=== PATIENT | female | born 1960 ===

== ENCOUNTER 2018-04-27 21:30 | Emergency (ER) | payer SELFPAY ==
[2018-04-27 21:48] VITALS: TEMP 97.9
[2018-04-27] MEDS ORDERED: Sodium Chloride 0.9% 1,000 ML IV ONE (21:58)
[2018-04-27] MEDS ORDERED: Hydrocortisone 2.5% Rectal Cream(30 gm) PR STA (21:59)
[2018-04-27] MEDS ORDERED: Sodium Chloride 0.9% 1,000 ML ONE (22:28)
[2018-04-27 22:37] LABS: BASO # 0.1 K/uL (0.0-0.2); BASO % 0.9 % (0.0-2.0); EOS % 0.6 % (0.0-4.0); HEMOGLOBIN 13.7 g/dL (11.0-16.0); LYMPH # 2.2 K/uL (1.0-4.3); LYMPH % 28.7 % (20.0-40.0); MEAN CELL VOLUME 86.6 fL (81.0-99.0); MEAN CORPUSCULAR HEMOGLOBIN 30.4 pg (27.0-31.0); MEAN CORPUSCULAR HGB CONC 35.1 g/dL (33.0-37.0); MONO # 0.7 K/uL (0.0-0.8); MONO % 9.3 % (0.0-10.0); NEUT # 4.6 K/uL (1.8-7.0); NEUT % 60.5 % (50.0-75.0); NRBC % 0.1 % (0.0-2.0); RBC 4.49 Mil/uL (3.80-5.20); RED CELL DISTRIBUTION WIDTH 13.1 % (11.5-14.5); WHITE BLOOD COUNT 7.6 K/uL (4.8-10.8)
--- NOTE | 2018-04-27 22:42 | C.PDOC ---
History Of Present Illness 58 y/o female presents to the ED complaining of epigastric burning, bloating, and increased gas since yesterday around 5:00pm. Reports her last meal was fried chicken. Patient tried taking Pepto-Bismol at home without any relief. She denies any associated vomiting, diarrhea, dysuria, hematuria, dizziness, SOB, or chest pain. Admits to history of (+) H pylori several years ago, patient currently does not take any PPI or H2 blockers. She additionally complains of a mild frontal headache. Time Seen by Provider: 04/27/18 21:35 Chief Complaint (Nursing): Abdominal Pain History Per: Patient History/Exam Limitations: no limitations Onset/Duration Of Symptoms: Days (x1) Current Symptoms Are (Timing): Still Present Context: Food Location Of Pain/Discomfort: Epigastric Quality Of Discomfort: Burning, Gas Associated Symptoms: Nausea Past Medical History Reviewed: Historical Data, Nursing Documentation, Vital Signs Vital Signs: Last Vital Signs Temp 97.9 F 04/27/18 21:39 Pulse 64 04/27/18 21:39 Resp 18 04/27/18 21:39 BP 130/90 04/27/18 21:39 Pulse Ox 98 04/27/18 21:39 - Medical History PMH: Gall Bladder Disease Denies: Chronic Kidney Disease Other PMH: H. pylori Family History: States: No Known Family Hx - Social History Hx Tobacco Use: No Hx Alcohol Use: No Hx Substance Use: No - Immunization History Hx Tetanus Toxoid Vaccination: No Hx Influenza Vaccination: No Hx Pneumococcal Vaccination: No Review Of Systems Constitutional: Negative for: Fever, Chills, Sweats Eyes: Negative for: Vision Change Cardiovascular: Negative for: Chest Pain, Palpitations Respiratory: Negative for: Shortness of Breath Gastrointestinal: Positive for: Nausea, Abdominal Pain. Negative for: Vomiting, Diarrhea, Hematochezia Genitourinary: Negative for: Dysuria, Frequency, Hematuria Neurological: Positive for: Headache (mild, frontal). Negative for: Weakness, Numbness, Dizziness Physical Exam - Physical Exam Appears: Non-toxic, No Acute Distress Skin: Normal Color, Warm, Dry Head: Atraumatic, Normacephalic Eye(s): bilateral: Normal Inspection, PERRL, EOMI Oral Mucosa: Moist Neck: Normal ROM Chest: Symmetrical Cardiovascular: Rhythm Regular, No Murmur Respiratory: Normal Breath Sounds, No Rales, No Rhonchi, No Wheezing Gastrointestinal/Abdominal: Soft, Tenderness (mild, epigastric tenderness), No Guarding, No Rebound Back: No CVA Tenderness, No Vertebral Tenderness Extremity: Bilateral: Atraumatic, Normal Color And Temperature, Normal ROM Neurological/Psych: Oriented x3, Normal Speech ED Course And Treatment - Laboratory Results Result Diagrams: 04/27/18 12:30 04/27/18 12:30 O2 Sat by Pulse Oximetry: 98 (on RA) Pulse Ox Interpretation: Normal Progress Note: Blood work, UA ordered and reviewed. Administered NS IV fluids x 1 bolus, Protonix, Tylenol, and SC anusol-HC. Disposition Counseled Patient/Family Regarding: Studies Performed, Diagnosis, Need For Followup, Rx Given - Disposition Referrals: Adolfo Polanco [Staff Provider] - Disposition: HOME/ ROUTINE Disposition Time: 23:15 Condition: STABLE Additional Instructions: FOLLOW UP WITH ABLE BODIED SEAMAN WITHIN 1 WEEK AVOID SPICY OR ACIDIC FOODS USE PROTONIC DAILY RETURN TO ER IF SYMPTOMS WORSEN Prescriptions: Pantoprazole [Protonix EC Tab] 20 mg PO DAILY #30 ect Instructions: Dyspepsia (DC) Forms: [employer] (Upper Sorbian) Print Language: HUNGARIAN - Clinical Impression Clinical Impression: Epigastric abdominal pain, Dyspepsia - Scribe Statement The provider has reviewed the documentation as recorded by the Scribe (Alia Stephenson) Provider Attestation: All medical record entries made by the Scribe were at my direction and personall y dictated by me. I have reviewed the chart and agree that the record accurately reflects my personal performance of the history, physical exam, medical decision making, and the department course for this patient. I have also personally directed, reviewed, and agree with the discharge instructions and disposition.
[2018-04-27 22:54] LABS: ALB/GLOB RATIO 1.7 (1.0-2.1); ALBUMIN 4.3 g/dL (3.5-5.0); ALT/SGPT 29 U/L (9-52); AST/SGOT 20 U/L (14-36); BLOOD UREA NITROGEN 7 mg/dL (7-17); CALCIUM 9.7 mg/dl (8.6-10.4); GFR NON-AFRICAN AMERICAN > 60; LIPASE 69 U/L (23-300)
[2018-04-27] MEDS ORDERED: Potassium Chloride 20 mEq ER Tab PO STA (23:00)
[2018-04-27] MEDS ORDERED: Potassium Chloride 20 mEq ER Tab PO ONE (23:13)
[2018-04-27 23:57] VITALS: BP 117/79; PULSE 67; RESP 16; O2SAT 97
== END 2018-04-28 00:22 | disposition home or self-care (01) ==
LOC: C.ER 21:30
DX: R10.13 Epigastric pain (principal)
CPT/HCPCS: 80053; 83690; 85025; 96361; 96374; 99285; C9113; J7030